=== PATIENT | female | born 1955 | race Caucasian/White ===

== ENCOUNTER 2017-06-09 07:29 | Day surgery (SDC) | payer BC ==
[~2017-06-09 07:29] MED LIST: Dextrose 5%-0.45% NaCl 1,000 ML IV SCH; Midazolam 1 MG/ML 2 ML SDV ONE; Sodium Chloride 0.9% 10 ML Syringe FLUSH PRN; fentaNYL 100 MCG/2 ML SDV ONE
[2017-06-09] MEDS ORDERED: Midazolam 1 MG/ML 2 ML SDV IV ONE ×3 (07:30→08:35)
[2017-06-09] MEDS ORDERED: fentaNYL 100 MCG/2 ML SDV IV ONE ×3 (07:30→08:34)
--- NOTE | 2017-06-09 12:41 | OR ---
DATE: 06/09/2017 PROCEDURE: Esophagogastroduodenoscopy and multiple pinch biopsies. INSTRUMENT USED: GIF-H180 Olympus video panendoscope. PREMEDICATIONS: No oral topical anesthesia used. Fentanyl 100 mcg intravenous, Versed 2 mg intravenous. The procedure was done under pulse oximetry, BP recording, and phototypesetting equipment monitor. INDICATION: The patient with longstanding heartburn, on PPI. Has FIT positive stools. Esophagogastroduodenoscopy is performed for detection of any active erosive lesions, Mercer esophagus and/or malignancy also under consideration, H. pylori status to be determined, endoscopic hemostasis therapy if needed. The scope was passed with ease. Adequate visualization of the esophagus was made from [id number] areas. No upper esophageal lesions identified. No distal esophageal stricture. No uphill or downhill esophageal varices. No Jayne-Truong tear. No evidence of erosive esophagitis by [place] criteria. No esophageal polyp or tumor mass identified. Z-line was seen at 39 cm distal to the oral verge, configuration consistent with grade 1 by ZAP classification. No proximal gastric varices noted. Gastric fundus examination by retroflexion showed no polypoid lesions. No gastric ulcer, malignant mass, or vascular ectasia identified. Duodenal bulb showed no ulcer. Visualized second part of the duodenum was unremarkable. Multiple pinch biopsies were taken from the gastric antrum and proximal body and sent for PyloriTek test for H. pylori, and if negative in an hour, tissues to be sent for histopathology. No bleeding was noted from any of the visualized areas at the completion of examination. Photographs were taken of the duodenal bulb, gastric antrum, fundus, and distal esophagus. IMPRESSION: Normal study. The patient tolerated the procedure well. [facility] /[id number]
== END 2017-06-09 10:15 | disposition home or self-care (01) ==
LOC: DL.ENDO 07:29
PROVIDERS: ATTEND Internal Medicine Gastroenterology
DX: R19.5 Other fecal abnormalities (principal); E66.09 Other obesity due to excess calories; E11.9 Type 2 diabetes mellitus without complications; E78.5 Hyperlipidemia, unspecified; R12 Heartburn; Z87.891 Personal history of nicotine dependence; Z79.899 Other long term (current) drug therapy
CPT/HCPCS: 43239; 87077; J2250; J3010; J7042

== ENCOUNTER 2017-06-11 05:51 | Day surgery (SDC) | payer BC ==
[2017-06-11] MEDS ORDERED: Midazolam 1 MG/ML 2 ML SDV IV ONE ×7 (05:52→07:20)
[2017-06-11] MEDS ORDERED: fentaNYL 100 MCG/2 ML SDV IV ONE ×4 (05:52→07:21)
[2017-06-11] MEDS ORDERED: Midazolam 1 MG/ML 2 ML SDV ONE (06:15)
[2017-06-11] MEDS ORDERED: fentaNYL 100 MCG/2 ML SDV ONE (06:16)
[2017-06-11] MEDS ORDERED: Dextrose 5%-0.45% NaCl 1,000 ML IV SCH (06:30)
--- NOTE | 2017-06-11 09:51 | OR ---
DATE: 06/11/2017 PROCEDURES: Total colonoscopy, narrow-band imaging, and multiple snare polypectomies. INSTRUMENT USED: CF-H180 AL Olympus video colonoscope and PCF-H180 AL Olympus video colonoscope. PREMEDICATIONS: Fentanyl 125 mcg intravenous, Versed 4 mg intravenous. Nasal O2 cannula. The procedure was done under pulse oximetry, BP recording, and bus monitor. INDICATION: The patient with rectal bleeding and FIT positive stools. Colonoscopic examination is done for detection of any polypoid lesions and removal, endoscopic hemostasis therapy if needed. DESCRIPTION OF PROCEDURE: Initial rectal exam was unremarkable. Rigid anoscopy was normal. CF-H180 AL Olympus colonoscope was passed up to the area of distal descending colon, where pedunculated just less than 1-cm sized polyp was noted. NBI views were taken. Photograph was obtained. Snare polypectomy was done. The tissue was retrieved and sent for histopathology. Polypectomy site was clean. The CF- H180 AL colonoscope was replaced by PCF-H180 AL colonoscope which was passed with ease up to the ileocecal area. Photographs were taken of the normal- appearing cecum identified by landmarks of appendiceal orifice and double-bulged ileocecal folds. No bleeding was noted from any of the visualized areas at the commencement of examination. No stricture. No vascular ectasia. No large isolated ulcerations seen. No evidence of diffuse inflammatory bowel disease in the form of friability, contact bleeding, or ulcerations. Probing the proximal sides of folds and flexures, using adequate distention and clearing up the stool material, withdrawal of the scope was made. In the hepatic flexure area, diminutive polyp was noted. Cold snare polypectomy was done. The tissue was retrieved and sent for histopathology. No bleeding was noted from any of the visualized areas at the completion of examination. IMPRESSION: Multiple colonic polyps. The patient tolerated the procedure well. [facility] /[id number]
== END 2017-06-11 09:40 | disposition home or self-care (01) ==
LOC: DL.ENDO 05:51
PROVIDERS: ATTEND Internal Medicine Gastroenterology
DX: D12.3 Benign neoplasm of transverse colon (principal); D12.4 Benign neoplasm of descending colon; E66.09 Other obesity due to excess calories; E11.9 Type 2 diabetes mellitus without complications; E78.5 Hyperlipidemia, unspecified; Z90.710 Acquired absence of both cervix and uterus; Z87.891 Personal history of nicotine dependence; Z79.899 Other long term (current) drug therapy
CPT/HCPCS: 45385; J2250; J3010; J7042

== ENCOUNTER 2023-11-16 05:51 | Emergency (ER) | payer MEDICARE, BC ==
[2023-11-16 07:29] LABS: HEMATOCRIT 38.8 % (37.0-47.0); HEMOGLOBIN 13.1 g/dL (12.0-16.0); MEAN CORPUSCULAR HEMOGLOBIN 31.1 pg (27.0-34.0); MEAN CORPUSCULAR HGB CONC 33.8 g/dL (33.0-35.0); MEAN CORPUSCULAR VOLUME 92.2 fL (80-100); PLATELET COUNT,PLT 263 10^3/uL (150-450); RED BLOOD CELL COUNT 4.21 10^6/uL (4.2-5.4); WHITE BLOOD CELL COUNT,WBC 22.7 10^3/uL (5.0-10.0)
[2023-11-16] MEDS: Ondansetron 4 MG/2 ML SDV IVPUSH ONE (07:36)
[2023-11-16] MEDS: Ketorolac 30 MG/ML SDV IVPUSH ONE (07:36)
[2023-11-16] MEDS: Lactated Ringers 2,500 ML IV SCH (07:36)
[2023-11-16 07:42] LABS: A/G RATIO 0.65; ANION GAP 14.3 mEq/L (7-13); BASOPHILS PERCENT AUTO 0.1 % (0.0-1.0); BILIRUBIN TOTAL 1.3 mg/dL (0.2-1.0); BUN/CREATININE RATIO 13.3 (No establ ref range); CALCIUM 9.6 mg/dL (8.5-10.1); CREATININE 1.2 mg/dL (0.55-1.02); EST CRCL DRUG DOSING (CG) 44.85 mL/min; LYMPHOCYTES PERCENT AUTO 2.8 % (20.5-50.1); MONOCYTES PERCENT AUTO 4.5 % (2-8); NEUTROPHILS PERCENT AUTO 92.6 % (42.2-75.2); POTASSIUM,K 3.3 mmol/L (3.5-5.1); PROTEIN TOTAL,TP 7.6 g/dL (6.4-8.2)
[2023-11-16 07:46] LABS: LACTIC ACID 1.9 mmol/L (0.4-2.0)
[2023-11-16 07:47] LABS: APPEARANCE,URINE CLEAR (CLEAR); BILIRUBIN,URINE SMALL (NEGATIVE); COLOR,URINE DARK YELLOW (YELLOW); GLUCOSE,URINE NEGATIVE (NEGATIVE); KETONES,URINE 15 (NEGATIVE); LEUKOCYTE ESTERASE,URINE NEGATIVE (NEGATIVE); NITRITE,URINE NEGATIVE (NEGATIVE); OCCULT BLOOD,URINE SMALL (NEGATIVE); PH,URINE 5.5 (5.0-9.0); PROTEIN,URINE 100 (NEGATIVE)
[2023-11-16 07:56] LABS: BAND PERCENT MAN 5 %; SEG NEUTROPHILS PERCENT MAN 88 % (42-75)
[2023-11-16] MEDS: Iopamidol 612 MG/ML 100 ML Bottle IVPUSH ONE (07:56)
[2023-11-16 07:57] LABS: LYMPHOCYTES PERCENT MAN 5 % (20-50); MONOCYTES PERCENT MAN 2 % (2-8)
[2023-11-16 08:01] LABS: BACTERIA,URINE FEW /HPF (0-FEW/HPF); EPITHELIAL CELLS,URINE FEW /HPF (NOT SEEN); MUCUS,URINE OCCASIONAL /LPF (NOT SEEN); RBC,URINE 0-5 /HPF (0-5); WBC,URINE 0-5 /HPF (0-5/HPF)
[2023-11-16] MEDS: cefTRIAXone 2 GM Vial IVPUSH ONE (08:53)
== END 2023-11-16 09:59 ==
LOC: DL.ED 05:51
DX: J18.9 Pneumonia, unspecified organism (principal); I10 Essential (primary) hypertension
CPT/HCPCS: 36415; 71045; 74177; 80053; 81001; 83605; 83690; 84484; 85025; 87040; 93005; 96361; 96374; 96375; 99284; 99284-25; J0696; J1885; J2405; J7120; Q9967